=== PATIENT | male | born 1980 | race Caucasian/White ===

== ENCOUNTER 2021-03-26 15:44 | Emergency (ER) | payer SELFPAY ==
[~2021-03-26] VITALS: Ht 175.2 cm; Wt 107.5 kg
[2021-03-26] MEDS ORDERED: PROVENTIL HFA6.7 GM INH (18:54)
[2021-03-26] MEDS ORDERED: PREDNISONE20 M1 PO (18:54)
== END 2021-03-26 19:12 | disposition home or self-care (01) ==
LOC: ED 15:44
DX: U07.1 COVID-19 (principal)

== ENCOUNTER 2021-06-13 06:06 | Emergency (ER) | payer OTHER ==
[~2021-06-13] VITALS: Ht 175.2 cm; Wt 107.5 kg
[~2021-06-13 06:06] MED LIST: PREDNISONE20 M1 PO; PROVENTIL HFA6.7 GM INH
[2021-06-13 07:00] LABS: HEMATOCRIT 37.9 % (42.0-52.0); MEAN CELL VOLUME 85.9 fl (80.0-94.0); MEAN CORPUSCULAR HGB 29.9 pg (27.0-31.0); MEAN CORPUSCULAR HGB CONC 34.8 g/dl (33.0-37.0); MEAN PLATELET VOLUME 9.8 fl (9.6-12.3); PLATELET COUNT AUTOMATED 220 10*3/uL (130-400); RED BLOOD COUNT 4.41 10*6/uL (4.50-5.90); RED CELL DISTRI WIDTH 12.4 % (0-14.5); WHITE BLOOD COUNT 16.3 10*3/uL (4.8-10.8)
[2021-06-13 07:14] LABS: BUN 14 mg/dl (7-24); CHLORIDE 105 mmol/L (98-107); CREATININE 1.06 mg/dL (0.70-1.30); POTASSIUM 3.7 mmol/L (3.5-5.1); SODIUM 136 mmol/L (136-145)
[2021-06-13 08:20] LABS: ATYPICAL LYMPHS 1 % (0-0); TOTAL CELLS COUNTED 100 #CELLS
[2021-06-13 08:21] LABS: PLATELET SUFFICIENCY NORMAL (NORMAL); POLYCHROMASIA SLIGHT
== END 2021-06-13 11:40 | disposition short-term general hospital (02) ==
LOC: ED 06:06
PROVIDERS: Internal Medicine
DX: J36 Peritonsillar abscess (principal)